=== PATIENT | female | born 1965 | race Caucasian/White ===

== ENCOUNTER 2020-12-27 16:13 | Outpatient (REF) | payer OTHER, SELFPAY ==
--- NOTE | ~2020-12-27 | XR_ITS ---
EXAMINATION: XR FOOT, LEFT CLINICAL INFORMATION: Foot. COMPARISON: None TECHNIQUE: AP, lateral, and oblique views of the left foot. FINDINGS: A small plantar spur is noted on the posterior calcaneus with calcification at the insertion of the Achilles tendon. The bones and soft tissues are otherwise normal. No fracture. Alignment is anatomic. Joint spaces are maintained. XR/XR foot LT 2V IMPRESSION: No acute abnormality. Calcaneal spurring.
[2020-12-27 17:46] LABS: MANUAL DIFF FLAG NO
[2020-12-27 17:53] LABS: Basophils Absolute Auto 0.1 X10*3/uL (0.0-0.2); Basophils Percent Auto 0.7 % (0-2); Eosinophils Absolute Auto 0.3 X10*3/uL (0.0-0.4); Eosinophils Percent Auto 3.6 % (0-4); Hematocrit 44.3 % (37-47); Hemoglobin 14.5 g/dl (12.0-16.0); Imm Gran Abs Auto 0.01 X10*3/uL (0.00-0.03); Imm Gran Pct Auto 0.1 % (0.0-0.4); Lymphocytes Absolute Auto 3.3 X10*3/uL (1.2-4.9); Mean Corpuscular HGB Conc 32.7 g/dl (31.0-35.0); Mean Corpuscular Volume 91.5 fL (80-98); Mean Platelet Volume 10.5 fL (9.4-12.3); Monocytes Absolute Auto 0.6 X10*3/uL (0.1-1.2); Monocytes Percent Auto 8.4 % (2-11); Neutrophils Absolute Auto 2.8 X10*3/uL (2.0-8.3); Neutrophils Percent Auto 40.2 % (45-73); Platelet Count 345 X10*3/uL (160-400); Red Blood Count 4.84 X10*6/uL (4.20-5.50); Red Cell Distribution Width 13.5 % (11.0-16.0); White Blood Count 6.9 X10*3/uL (4.8-10.8)
[2020-12-27 18:03] LABS: Glucose Urine UA NEG (NEG); Leukocyte Esterase Urine NEG (NEG); Nitrite Urine NEG (NEG); PH 5.5 (5.0-8.0); Specific Gravity - Urine 1.015 (1.005-1.025); Urine Blood TRACE (NEG); Urine Ketones NEG (NEG); Urine Protein NEG (NEG-TRACE)
[2020-12-27 18:06] LABS: D Dimer 573 NG/ML
[2020-12-27 18:07] LABS: Appearance Urine CLEAR; Color Urine YELLOW
[2020-12-27 18:15] LABS: RBC Urine 0-2 /HPF (0); WBC Urine 0 /HPF (0-4)
[2020-12-27 18:19] LABS: Alanine Aminotransferase 13 U/L (0-31); Albumin Level 4.7 g/dL (3.5-5.0); Alkaline Phosphatase 100 U/L (39-117); Anion Gap 12 (12-20); Aspartate Amino Transferase 16 U/L (5-31); Bilirubin Total 0.7 mg/dL (0.0-1.0); Blood Urea Nitrogen 16 mg/dL (9-16); Carbon Dioxide 30 mmol/L (22-29); Chloride 105 mmol/L (96-108); Cholesterol 219 mg/dL; Estimated Glomerular Filt Rate > 60; Glucose Random 78 mg/dL (60-115); HDL Cholesterol 69 mg/dL; LDL Cholesterol Calculated 127 mg/dl; Potassium 4.6 mmol/L (3.3-5.1); Sodium 142 mmol/L (135-145); Total Protein 7.6 g/dL (6.5-8.0); Triglycerides 115 mg/dL
== END 2020-12-27 16:14 | disposition home or self-care (01) ==
LOC: HO.LAB 16:13
PROVIDERS: PCP Internal Medicine; Visit Provider Nurse Practitioner Family
DX: M79.672 Pain in left foot (principal); R30.0 Dysuria
CPT/HCPCS: 36415; 73620; 80053; 80061; 81001; 85025; 85379

== ENCOUNTER 2021-06-02 12:20 | Outpatient (REF) | payer OTHER, SELFPAY ==
[2021-06-02 14:16] LABS: MANUAL DIFF FLAG NO
[2021-06-02 14:29] LABS: Basophils Percent Auto 0.5 % (0-2); Eosinophils Absolute Auto 0.1 X10*3/uL (0.0-0.4); Eosinophils Percent Auto 2.3 % (0-4); Hematocrit 42.9 % (37-47); Hemoglobin 14.1 g/dl (12.0-16.0); Imm Gran Abs Auto 0.01 X10*3/uL (0.00-0.03); Imm Gran Pct Auto 0.2 % (0.0-0.4); Lymphocytes Absolute Auto 2.8 X10*3/uL (1.2-4.9); Lymphocytes Percent Auto 44.2 % (20-40); Mean Corpuscular HGB Conc 32.9 g/dl (31.0-35.0); Mean Corpuscular Hemoglobin 30.9 pg (27.0-33.0); Mean Corpuscular Volume 93.9 fL (80-98); Mean Platelet Volume 10.5 fL (9.4-12.3); Monocytes Absolute Auto 0.5 X10*3/uL (0.1-1.2); Monocytes Percent Auto 7.2 % (2-11); Neutrophils Absolute Auto 2.8 X10*3/uL (2.0-8.3); Neutrophils Percent Auto 45.6 % (45-73); Platelet Count 335 X10*3/uL (160-400); Red Blood Count 4.57 X10*6/uL (4.20-5.50); Red Cell Distribution Width 13.2 % (11.0-16.0); White Blood Count 6.2 X10*3/uL (4.8-10.8)
[2021-06-02 14:42] LABS: Alanine Aminotransferase 23 U/L (0-31); Albumin Level 4.5 g/dL (3.5-5.0); Alkaline Phosphatase 93 U/L (39-117); Anion Gap 13 (12-20); Aspartate Amino Transferase 21 U/L (5-31); Bilirubin Total 1.1 mg/dL (0.0-1.0); Blood Urea Nitrogen 14 mg/dL (9-16); Calcium 9.6 mg/dL (8.4-10.2); Carbon Dioxide 25 mmol/L (22-29); Chloride 108 mmol/L (96-108); Estimated Glomerular Filt Rate > 60; Glucose Random 76 mg/dL (60-115); Potassium 4.2 mmol/L (3.3-5.1); Sodium 142 mmol/L (135-145); Total Protein 7.5 g/dL (6.5-8.0)
== END 2021-06-02 12:21 | disposition home or self-care (01) ==
LOC: HO.LAB 12:20
PROVIDERS: Absent Provider Nurse Practitioner Family; PCP Internal Medicine; Visit Provider Internal Medicine
DX: R10.13 Epigastric pain (principal)
CPT/HCPCS: 36415; 80053; 85025

== ENCOUNTER 2021-06-04 08:50 | Outpatient (REF) | payer OTHER, SELFPAY | END 2021-06-04 08:51 | disposition home or self-care (01) | LOC: HO.LNP 08:50 | PROVIDERS: Visit Provider Nurse Practitioner Family | DX: R10.13 Epigastric pain (principal) | CPT/HCPCS: 87338 ==

== ENCOUNTER 2021-09-22 12:25 | Day surgery (SDC) | payer OTHER, SELFPAY ==
--- NOTE | 2021-09-19 08:49 | HO.ANESPROP2 ---
Documented by User: Juana Gatica NP 09/19/21 08:50 HPI - Anesthesia Eval Consult details Narrative: 56yo F for Upper Endoscopy PMFSH Active Problems Active Problems: All Active Problems (Updated 06/02/21 @ 12:02 by NIYAH Weston) Callus of foot (Acute) Nausea (Acute) Epigastric pain (Acute) Hypertension (Acute) Left foot pain (Acute) Past Medical History Medical History (Updated 06/02/21 @ 12:02 by NIYAH Weston) Callus of foot Epigastric pain Hypertension Hypertension Left foot pain Migraines Nausea Neuropathy Family History Family History Father Hypertension Mother Hypertension Surgical History Surgical History History of laparoscopic cholecystectomy History of tonsillectomy Social History Social History Alcohol intake: never Patient Tobacco Use Status: Former Tobacco user Tobacco use type: Cigarette Use of substances other than those prescribed or required for medical reasons: No Advance Directives: No Advance Directives Information Provided: Yes Recently lost weight without trying: No Nutrition Risks: No Nutritional Risk Meds Allergies Allergy/AdvReac Type Severity Reaction Status Date / Time No Known Allergies Allergy Verified 06/02/21 11:28 [No Known Allergies*] Home Medications Medication Instructions Recorded Confirmed Last Taken Type omeprazole 20 mg capsule,delayed 20 mg PO BID 06/02/21 06/02/21 Unknown History release Exam Exam Date and Time: September 19, 2021 0849 Height,Weight and Vital Signs: Height 5 ft 1 in Weight 72.121 kg Pertinent Lab Results Pertinent Lab Results: Laboratory Tests 06/02/21 06/02/21 12:25 12:25 WBC 6.2 Hgb 14.1 Hct 42.9 Plt Count 335 Sodium 142 Potassium 4.2 Chloride 108 Carbon Dioxide 25 BUN 14 Creatinine 0.68 Assessment and Plan Assessment Anesthesia Assessment: Chart Reviewed Documented by User: Graciela Jo MD 09/22/21 14:41 [facility] Past Medical History Medical History (Updated 06/02/21 @ 12:02 by NIYAH Weston) Callus of foot Epigastric pain Hypertension Hypertension Left foot pain Migraines Nausea Neuropathy Family History Family History Father Hypertension Mother Hypertension Family history of problems with anesthesia: No Surgical History Surgical History History of laparoscopic cholecystectomy History of tonsillectomy Social History Social History Alcohol intake: never Patient Tobacco Use Status: Former Tobacco user Tobacco use type: Cigarette Use of substances other than those prescribed or required for medical reasons: No Advance Directives: No Advance Directives Information Provided: Yes Recently lost weight without trying: No Nutrition Risks: No Nutritional Risk Meds Allergies Allergy/AdvReac Type Severity Reaction Status Date / Time No Known Allergies Allergy Verified 06/02/21 11:28 [No Known Allergies*] Home Medications Medication Instructions Recorded Confirmed Last Taken Type omeprazole 20 mg capsule,delayed 20 mg PO BID 06/02/21 06/02/21 Unknown History release Exam Airway Mallampati Class: II TM Dist: >3cm Neck ROM: Full Heart: rrr Lungs: cta Assessment and Plan Assessment Anesthesia Assessment: Anesthesia Plan Discussed and Chart Reviewed Final Anesthetic Review Family History of Problems with Anesthesia: No NPO: Yes ASA Class: II Final Preanesthetic Review: No Changes in Pt Med Stat, Meds/Allgs Chart Reviewed and Consent Obtained/Reviewed Patient Risk: Intermediate Procedure Risk: Intermediate Anesthetic Plan Anesthetic Plan: MAC: Disposition: Standard PACU
[2021-09-22 13:27] VITALS: BMI 30.2
[2021-09-22 15:22] VITALS: BP 117/77; PULSE 75; RESP 16; TEMP 36.6; O2SAT 100
--- NOTE | 2021-09-22 15:24 | PM.OP ---
Brief Operative Note Date of Service: 09/22/21 Pre-op diagnosis: Abdominal pain Post-op diagnosis: other (Small hiatal hernia) Procedure: EGD with biopsies Surgeon: Ousmane Correa Anesthesia: MAC Was an Director Of Security used for this Procedure?: No Estimated blood loss (mL): 2.0 Pathology: other (A. Descending duodenum B. Gastric antrum C. EG Junction at 35cm) Condition: stable Disposition: PACU
[2021-09-22 15:40] VITALS: BP 158/68; PULSE 58; RESP 18; O2SAT 98
[2021-09-22 15:55] VITALS: BP 167/94; PULSE 60; RESP 18; TEMP 36.8; O2SAT 100
--- NOTE | 2021-09-22 18:34 | OP_ITS ---
SURGEON: Ousmane Correa MD INDICATIONS: The patient presents for evaluation of abdominal pain. Full consent has been obtained from her for that, including risks of bleeding and perforation. PREOPERATIVE DIAGNOSIS: Abdominal pain. POSTOPERATIVE DIAGNOSIS: PROCEDURE PERFORMED: Esophagogastroduodenoscopy with biopsy. ESTIMATED BLOOD LOSS: COMPLICATIONS: ANESTHESIA: Monitored anesthesia care. ASSISTANTS: SPECIMENS: POSTOPERATIVE DIAGNOSES: Abdominal pain, small hiatal hernia, rule out celiac disease, rule out gastritis and/or Helicobacter pylori. DESCRIPTION OF PROCEDURE: The patient was placed in left lateral decubitus position. The Olympus video gastroscope was passed in the posterior oropharynx and upper esophagus under direct vision. The scope was passed slowly into the distal esophagus. The gastroesophageal junction appeared at 35 cm. There was a very minimal irregularity, but no evidence of any esophagitis nor any definitive evidence of Winters's esophagus. The scope entered into the stomach. There was a small hiatal hernia. The scope was advanced to pylorus and the duodenum was cannulated to the descending portion. The duodenum including the bulb appeared normal without mass or ulceration. Biopsies were obtained from the second and third portions of duodenum. The scope was withdrawn back in the stomach. The gastric antrum and body appeared normal with good peristalsis. Biopsies were obtained from the gastric antrum. The scope was retroflexed visualizing the proximal stomach carefully which appeared normal, without any sign of mass or ulceration. Scope was straightened and withdrawn back into the esophagus. Biopsies were obtained at the EG junction at 35 cm. Proximal to that, the esophageal mucosa appeared normal. The scope was withdrawn from the patient. She tolerated the procedure well and was returned to the recovery area in stable condition. IMPRESSION: Small hiatal hernia, otherwise normal upper endoscopy. Rule out celiac disease, rule out gastritis and/or Helicobacter pylori. PLAN: The results of biopsies will be checked. She continues to have some abdominal pain and may need further workup with a CT scan of the abdomen. Laboratories earlier in the year have included normal CBC, chemistries, and LFTs. She is already status post cholecystectomy. She will be seen in the future in the office as well. If Helicobacter pylori is present in the gastric biopsies, I would not necessarily treat that since her symptoms do not seem really consistent with that since they are rather sporadic and on a postprandial basis. This has been discussed with her sister. MD ALEXANDRE Royal/JOHN / [id number]
== END 2021-09-22 16:26 | disposition home or self-care (01) ==
PROVIDERS: PCP Internal Medicine; Visit Provider Internal Medicine
PROC: 0DJ08ZZ Inspection of Upper Intestinal Tract, Via Natural or Artificial Opening Endoscopic (ICD-10-PCS; CPT 43235; principal; 2021-09-22 14:00)
DX: R10.13 Epigastric pain (principal); K44.9 Diaphragmatic hernia without obstruction or gangrene; I10 Essential (primary) hypertension; G62.9 Polyneuropathy, unspecified; Z79.899 Other long term (current) drug therapy; Z90.49 Acquired absence of other specified parts of digestive tract; Z87.891 Personal history of nicotine dependence
CPT/HCPCS: 43239; 88305; 88342

== ENCOUNTER 2023-02-05 10:03 | Outpatient (REF) | payer OTHER, SELFPAY ==
--- NOTE | ~2023-02-05 | XR_ITS ---
EXAMINATION: XR WRIST, LEFT XR HAND, LEFT CLINICAL INFORMATION: Ganglion COMPARISON: None available. TECHNIQUE: PA, lateral, and oblique views of the left wrist and PA, lateral, and oblique views of the left hand FINDINGS: Bone alignment is normal. No fracture or dislocation. Mild osteoarthritis at the first DETENTION joint with joint space narrowing and small osteophytes. Joint spaces are otherwise normal. Soft tissues are normal. 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
--- NOTE | ~2023-02-05 | XR_ITS ---
EXAMINATION: XR LUMBOSACRAL SPINE CLINICAL INFORMATION: Pain COMPARISON: Previous x-rays most recent May 2019 TECHNIQUE: Three views of the lumbosacral spine. FINDINGS: Transitional anatomy or lumbarization of S1. There is mild curvature of the lower lumbar sacral spine to the right. Bone alignment is otherwise normal. No fracture or dislocation. Normal disc spaces. Lower lumbar spine facet arthritis. Mild atherosclerotic disease. XR/XR lumbar spine 2-3V IMPRESSION: Mild curvature of the lower lumbar sacral spine to the right. Lower lumbar spine facet arthritis.
== END 2023-02-05 10:04 | disposition home or self-care (01) ==
LOC: HO.XRAY 10:03
PROVIDERS: PCP Internal Medicine; Visit Provider Internal Medicine
DX: M54.50 Low back pain, unspecified (principal); M67.439 Ganglion, unspecified wrist
CPT/HCPCS: 72100; 73110; 73130

== ENCOUNTER 2023-09-09 15:53 | Outpatient (REF) | payer OTHER, SELFPAY ==
--- NOTE | ~2023-09-09 | MM_ITS ---
EXAMINATION: MM SCREENING DIGITAL BREAST TOMOSYNTHESIS, BILATERAL CLINICAL INFORMATION: Screening. Asymptomatic. COMPARISON: Mammography: This study is compared with prior exams dating back to 2012. TECHNIQUE: Digital breast tomosynthesis is performed in both the craniocaudal and mediolateral oblique views along with computer-aided detection (CAD). Synthesized 2D images are generated from the tomosynthesis. FINDINGS: There are scattered areas of fibroglandular density (ACR BI-RADS breast composition Category b). There are no significant masses, abnormal calcifications, or other abnormalities. MM/MM tomosynthesis screening BI IMPRESSION: No mammographic evidence of malignancy. ASSESSMENT: BI-RADS BI-RADS 1 - Negative RECOMMENDATION: Routine annual mammography screening. 1 year F/U This examination should not preclude the clinical evaluation of a suspicious palpable abnormality. This patient's information was entered into a reminder system with a target due date for their next mammogram.
== END 2023-09-09 15:54 | disposition home or self-care (01) ==
LOC: HO.MAMMO 15:53
PROVIDERS: PCP Internal Medicine; Visit Provider Internal Medicine
DX: Z12.31 Encounter for screening mammogram for malignant neoplasm of breast (principal)
CPT/HCPCS: 77063; 77067

== ENCOUNTER → 2023-09-09 16:30 | Outpatient (BNV) | payer OTHER, SELFPAY | PROVIDERS: PCP Internal Medicine; Visit Provider Radiology Diagnostic Radiology | DX: Z12.31 Encounter for screening mammogram for malignant neoplasm of breast (principal) | CPT/HCPCS: 77063; 77067 ==

== ENCOUNTER 2023-10-08 08:29 | Outpatient (REF) | payer OTHER, SELFPAY ==
[2023-10-08 10:54] LABS: Alanine Aminotransferase 19 U/L (0-31); Albumin Level 4.3 g/dL (3.5-5.0); Alkaline Phosphatase 94 U/L (39-117); Anion Gap 12 (12-20); Aspartate Amino Transferase 17 U/L (5-31); Bilirubin Total 1.2 mg/dL (0.0-1.0); Blood Urea Nitrogen 9 mg/dL (9-16); Calcium 9.4 mg/dL (8.4-10.2); Carbon Dioxide 27 mmol/L (22-29); Chloride 106 mmol/L (96-108); Cholesterol 188 mg/dL (<200); Estimated Glomerular Filt Rate > 60; Glucose Fasting 84 mg/dL (60-99); HDL Cholesterol 65 mg/dL (>40); LDL Cholesterol Calculated 103 mg/dL (<100); Potassium 3.8 mmol/L (3.3-5.1); Sodium 141 mmol/L (135-145); Total Protein 7.5 g/dL (6.5-8.0); Triglycerides 104 mg/dL (<150)
== END 2023-10-08 08:30 | disposition home or self-care (01) ==
LOC: HO.LAB 08:29
PROVIDERS: PCP Internal Medicine; Visit Provider Internal Medicine
DX: E78.5 Hyperlipidemia, unspecified (principal); I10 Essential (primary) hypertension
CPT/HCPCS: 36415; 80053; 80061

== ENCOUNTER 2023-10-27 08:46 | Outpatient (REF) | payer OTHER, SELFPAY ==
[2023-10-29 04:59] LABS: HPV mRNA E6/E7 rflx Not Detected (Not Detected)
== END 2023-10-27 08:47 | disposition home or self-care (01) ==
LOC: HO.LNP 08:46
PROVIDERS: PCP Internal Medicine; Visit Provider Obstetrics & Gynecology
DX: Z01.419 Encounter for gynecological examination (general) (routine) without abnormal findings (principal); Z11.51 Encounter for screening for human papillomavirus (HPV)
CPT/HCPCS: 87624; 88142

== ENCOUNTER 2023-10-27 08:46 | Outpatient (AMB) | payer OTHER, SELFPAY ==
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
--- NOTE | 2023-10-27 08:55 | MHC.OFFVIS ---
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 No complaints. Last Pap/HPV was more than 5 years ago Last Mammogram was BI-RADS 1 in 09/02 No previous screening Colonoscopy PFSH Medical History Callus of foot Nausea Epigastric pain Hypertension Left foot pain Migraines Neuropathy Hypertension Surgical History History of laparoscopic cholecystectomy History of tonsillectomy Family History Father Hypertension Mother Hypertension Social History Household Members Other:: sister Housing: House Alcohol intake: never Patient Tobacco Use Status: Former Tobacco user Tobacco use type: Cigarette Years Smoked: 5 e-Cigarette/Vaping Use: Never Used Second Hand Smoke Exposure: No service: No Current occupational status: employed Current occupation: cosmetic Sexually active: No Sexual orientation: Straight/Heterosexual Gender identity: Female Cognitive needs: No Hearing needs: No Vision needs: No Female Reproductive History Menstrual Menopause type: natural Total pregnancies: 0 Date of Mammogram: 09/09/23 Review of Systems Const All systems reviewed & are unremarkable except as noted in HPI and below Card Reports as per HPI Resp Reports as per HPI GI Reports as per HPI and Reports no additional complaints Reports as per HPI Physical Exam Vital Signs: BMI result Body Mass Index 31.7 Const General: cooperative, healthy appearing and comfortable Chest Chest palpation & inspection: normal inspection of the chest and normal palpation of entire chest wall Breast/axilla inspection: normal inspection of the breasts and normal inspection of the axillae Breast/axilla palpation: normal palpation of the breasts, normal palpation of the axillae and no axillary lymphadenopathy Resp Effort & Inspection: normal respiratory effort Auscultation: clear to auscultation bilaterally Percussion: percussion normal Cardio Palpation: normal PMI Rate: regular rate Rhythm: regular rhythm Heart sounds: no murmurs and no rubs Peripheral pulses: Peripheral pulses 2+ throughout GI Inspection: Yes normal to inspection Palpation (GI): Soft to palpation, nontender, no guarding, not rigid and No hepatosplenomegaly present Percussion: Yes normal to percussion Auscultation: normal bowel sounds Rectal Exam - Female: deferred General: Yes bladder normal to palpation External Female Exam: No lesion Speculum Exam - Vagina: normal appearance of the vagina, normal palpation, normal vaginal discharge and not erythematous Speculum Exam - Cervix: normal appearance of the cervix and normal palpation Bimanual exam- vagina & uterus: normal bimanual exam, normal palpation, uterine size normal, bladder normal to palpation, consistency normal and normal palpation Bimanual Exam- Adnexa, other: normal adnexae, no masses and no tenderness Assessment & Plan Assessment & Plan (1) Well woman exam: Code(s): Z01.419 - Encounter for gynecological examination (general) (routine) without abnormal findings Plan: Co testing done. Counseled the patient about the recommended dietary allowance of 1200 mg of Calcium & 600 IU of vitamin D. Instructions given the patient to schedule next screening Mammogram in 09/03. The patient was referred to GI for screening colonoscopy . The patient was instructed to perform monthly self-breast exams and schedule annual exam in a year. All questions answered and the patient verbalized understanding. Orders: Referrals Gastroenterology Referral Z12.11 - Encounter for screening for malignant neoplasm of colon Coding Level of Care Code New Pt Prev Care 40-64y(09970) Diagnoses Well woman exam Z01.419
[2023-10-27 08:56] VITALS: BP 150/108; BMI 31.7
== END 2023-10-27 09:19 | disposition home or self-care (01) ==
LOC: HO.HWS 08:46
PROVIDERS: PCP Internal Medicine; Visit Provider Obstetrics & Gynecology
DX: Z01.419 Encounter for gynecological examination (general) (routine) without abnormal findings (principal)
CPT/HCPCS: 99386

== ENCOUNTER 2024-07-15 08:50 | Outpatient (REF) | payer OTHER, SELFPAY ==
[2024-07-15 10:15] LABS: Alanine Aminotransferase 12 U/L (0-31); Albumin Level 4.3 g/dL (3.5-5.0); Alkaline Phosphatase 64 U/L (39-117); Anion Gap 10 (12-20); Aspartate Amino Transferase 15 U/L (5-31); Bilirubin Total 1.2 mg/dL (0.0-1.0); Blood Urea Nitrogen 14 mg/dL (9-16); Calcium 9.6 mg/dL (8.4-10.2); Carbon Dioxide 26 mmol/L (22-29); Chloride 109 mmol/L (96-108); Cholesterol 210 mg/dL (<200); Estimated Glomerular Filt Rate > 60; Glucose Fasting 88 mg/dL (60-99); Glucose Random 87 mg/dL (60-115); HDL Cholesterol 51 mg/dL (>40); LDL Cholesterol Calculated 139 mg/dL (<100); Potassium 4.1 mmol/L (3.3-5.1); Sodium 141 mmol/L (135-145); Triglycerides 102 mg/dL (<150)
== END 2024-07-15 08:51 | disposition home or self-care (01) ==
LOC: HO.LAB 08:50
PROVIDERS: PCP Internal Medicine; Referring Provider Internal Medicine; Visit Provider Physician Assistant
DX: I10 Essential (primary) hypertension (principal)
CPT/HCPCS: 36415; 80048; 80053; 80061

== ENCOUNTER 2024-09-21 15:49 | Outpatient (REF) | payer OTHER, SELFPAY ==
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
== END 2024-09-21 15:50 | disposition home or self-care (01) ==
LOC: HO.MAMMO 15:49
PROVIDERS: PCP Physician Assistant; Visit Provider Internal Medicine
DX: Z12.31 Encounter for screening mammogram for malignant neoplasm of breast (principal)
CPT/HCPCS: 77063; 77067

== ENCOUNTER → 2024-09-21 16:00 | Outpatient (BNV) | payer OTHER, SELFPAY | PROVIDERS: PCP Physician Assistant; Visit Provider Internal Medicine | DX: Z12.31 Encounter for screening mammogram for malignant neoplasm of breast (principal) | CPT/HCPCS: 77063; 77067 ==

== ENCOUNTER 2024-11-29 16:25 | Outpatient (AMB) | payer OTHER, SELFPAY ==
--- OUTSIDE RECORDS SUMMARY | 2024-11-29 16:27 | XMS_ITS | Clinical Summary ---
Author Organization [facility] Address [address] [place] [address] Care Team Providers Care Dryer And Washer Mechanic Name Role Phone Debbie Patricio MD Primary Care Provider [phone] Surgical History Surgery Date Site/Laterality Comments OTHER SURGICAL HISTORY 10/08/2018 PROCEDURE: LAPAROSCOPY, CHOLECYSTECTOMY; COMMENT: Dr. Bishop Social History Tobacco Use Types Packs/Day Years Used Date Smoking Tobacco: Never Smokeless Tobacco: Never Comments Unknown Sex and Gender Information Value Date Recorded Sex Assigned at Not on file Legal Sex Female 5:41 PM EST Gender Identity Not on file Sexual Orientation Not on file Obstetrics History Plan of Treatment Health Maintenance Due Date Last Done Comments Breast Cancer Screening 1965 DTaP,Tdap,and Td Vaccines (1 - Tdap) 1984 Hepatitis B Vaccines (1 of 3 - 19+ 3-dose series) 1984 Cervical Cancer Screening: P ap Smear 1986 Pneumococcal Vaccine: 50+ Ye ars (1 of 1 - PCV) 2015 Zoster Vaccines (1 of 2) 2015 COVID-19 Vaccine ( - 2023-2 5 season) 2024 Influenza Vaccine (#1) 2024 Colorectal Cancer Screening: Colonoscopy 08/04/2024 Depression Screening 08/04/2024 HIV Screening 08/04/2024 Hepatitis C Screening 08/04/2024 Social Influencers of Health Screening 08/04/2024 RSV Immunization Patients 60 + Years Old (1 - 1-dose 75+ series) 2040 HIB Vaccines Aged Out No longer eligi ble based on patient's age to complete this topic HPV Vaccines Aged Out No longer eligi ble based on patient's age to complete this topic Hepatitis A Vaccines Aged Out No long er eligible based on patient's age to complete this topic IPV Vaccines Aged Out No longer eligi ble based on patient's age to complete this topic MMR Vaccines Aged Out No longer eligi ble based on patient's age to complete this topic Meningococcal ACWY Vaccine Aged Out N o longer eligible based on patient's age to complete this topic Meningococcal B Vacine Aged Out No lo nger eligible based on patient's age to complete this topic Pneumococcal Vaccine: Pediat rics (0 to 5 Years) and At-Risk Patients (6 to 64 Years) Aged Out No longer eligible b ased on patient's age to complete this topic RSV Immunization Patients Un ivanna 20 months Aged Out No longer eligible b ased on patient's age to complete this topic Varicella Vaccines Aged Out No longer eligible based on patient's age to complete this topic Care Teams Dryer And Washer Mechanic Relationship Specialty Start Date End Date Debbie Patricio MD [address] [place] [address] , [address] [facility]: [facility] [place], MD PCP - General Internal Medicine 10/20/18
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
--- NOTE | 2024-11-29 16:42 | A.OFFPC_ITS ---
Vital Signs 11/29/24 16:44 Height 5 ft 1 in Weight 166 lb BMI 31.4 BP 152/90 H Blood Pressure Location Lt brachial Position Sitting Intake Visit Reasons: HighBP Intake Note: Patient here for bp follow up Campaign Consultant Required: No Accompanied by: Self / Same As Patient Allergies No Known Allergies [No Known Allergies*] Allergy (Verified 11/29/24 17:00) Medication List - Last Reconciled 11/29/24 by Debbie Patricio MD fluticasone furoate 27.5 mcg/actuation 2 sprays intranasal DAILY PRN 30 days gabapentin 400 mg PO TID 30 days lisinopril 20 mg PO DAILY 90 days naproxen 500 mg PO BID PRN 30 days omeprazole 20 mg PO BID Tobacco use date assessed: 11/29/24 Dental Screening Dental Screen Date: 11/29/24 Did you have a dental visit in the last 12 months?: Yes Did you have a dental problem in the last 6 months where you did not have access to dental care?: No Was dental information given to patient?: Patient has dentist HPI HPI Comments History of Present Illness Details The patient is a 59-year-old female presenting with hypertension. She has been experiencing elevated blood pressure readings, currently noted at 150/90 mmHg. She reports taking lisinopril 20 mg twice daily but indicates that this dosage is not effective. No chest pain or shortness of breath is reported. She denies any allergies to medications. [facility] Medical History Callus of foot Nausea Epigastric pain Hypertension Left foot pain Migraines Neuropathy Hypertension Surgical History History of laparoscopic cholecystectomy History of tonsillectomy Family History Father Hypertension Mother Hypertension Social History Household Members Other:: sister Housing: House Alcohol intake: never Patient Tobacco Use Status: Former Tobacco user Tobacco use type: Cigarette Years Smoked: 5 e-Cigarette/Vaping Use: Never Used Second Hand Smoke Exposure: No service: No Current occupational status: employed Current occupation: cosmetic Sexual orientation: Straight/Heterosexual Gender identity: Female Cognitive needs: No Hearing needs: No Vision needs: No Questionnaire PHQ-9 Over the last 2 weeks, how often have you been bothered by any of the following problems? 1. Little interest or pleasure in doing things: not at all 2. Feeling down, depressed, or hopeless: not at all 3. Trouble falling or staying asleep, or sleeping too much: not at all 4. Feeling tired or having little energy: not at all 5. Poor appetite or overeating: not at all 6. Feeling bad about yourself - or that you are a failure or have let yourself or your family down: not at all 7. Trouble concentrating on things, such as reading the newspaper or watching television: not at all 8. Moving or speaking so slowly that other people could have noticed. Or the opposite - being so fidgety or restless that you have been moving around a lot more than usual: not at all 9. Thoughts that you would be better off or of hurting yourself in some way: not at all Total score: 0 Depression Screening Interpretation: Negative Depression Screening Done: Yes 72030 - PHQ-9 Billing: Yes Source: Developed by Drs. Ousmane Koo, Jackie Espinosa, Bereket Moura and colleagues, with an educational dilshad from [employer]. Thrive Questionnaire Date Thrive assessed: 11/29/24 I am a: Patient What is your living situation today?: I have a steady place to live Within the past 12 months, did the food you bought not last and you didn't have the money to get more?: Never true Within the past 12 months, did you worry whether your food would run out before you got money to buy more?: Never true Do you have trouble paying for medicines?: No Do you have trouble getting transportation to medical appointments?: No Do you have trouble paying your heating and electricity bill?: No Do you have trouble taking care of your child, family member or friend?: No Do you have trouble with day-to-day activities such as bathing, preparing meals, shopping, managing finances, etc.?: No Are you currently unemployed and looking for a job?: No Are you interested in more education?: No Please select the resources that you would like help with: None Currently or been in a relationship where the following occur: No concerns reported THRIVE Score: 0 AUDIT C Alcohol Use Questionnaire (AUDIT-C) 1. How often do you have a drink containing alcohol?: Never Total Score: 0 Score Reviewed/Action Taken: No QUYNH-7 AMB Questionnaire QUYNH-7 Date QUYNH - 7 assessed: 11/29/24 Feeling nervous, anxious, or on edge: 0 = Not at all Not being able to stop or control worryin = Not at all Worrying too much about different things: 0 = Not at all Trouble relaxin = Not at all Being so restless that it is hard to sit still: 0 = Not at all Becoming easily annoyed or irritable: 0 = Not at all Feeling afraid as if something awful might happen: 0 = Not at all Total QUYNH-7 score (0-4 normal; 5-9 mild; 10-14 moderate; 15-21 severe): 0 Source: Developed by Drs. Ousmane Koo, Jackie Espinosa, Bereket Moura and colleagues, with an educational dilshad from [employer]. QUYNH-7 Assessment Billing QUYNH-7 Assessment Tool: QUYNH-7 Assessment 61286 Review of Systems Const All systems reviewed & are unremarkable except as noted in HPI and below Card Denies chest pain at rest, Denies chest pain with activity, Denies edema, Denies irregular heart rhythm, Denies claudication, Denies dyspnea, Denies dyspnea on exertion, Denies orthopnea, Denies paroxysmal nocturnal dyspnea and Denies slow heart rate Resp Denies cough, Denies dyspnea and Denies dyspnea on exertion GI Denies abdominal pain, Denies change in bowel habits, Denies excessive flatus, Denies nausea and Denies vomiting Denies urinary incontinence, Denies urinary hesitancy and Denies urinary urgency Neuro Denies behavioral changes and Denies lack of coordination Psych Denies behavioral changes Physical exam (Primary Care) Vital Signs: Last Vital Signs BP 152/90 H 11/29/24 16:44 BMI result Body Mass Index 31.4 BMI Assessment/Plan discussion: High BMI High, discussed plan: lifestyle, weight reduction, dietary and physical activity Tobacco/Smoking Status: Tobacco use Status Tobacco use date assessed 11/29/24 11/29/24 16:49 Patient Tobacco Use Status Former Tobacco user 11/29/24 16:44 Tobacco use type Cigarette 11/29/24 16:44 e-Cigarette/Vaping Use Never Used 11/29/24 16:44 PHQ-9: PHQ-9 Score PHQ-9: Total score 0 11/29/24 17:10 Depression Screening Interpretation: Negative Thrive Assessment: Date of Thrive Assessment Date Thrive assessed 11/29/24 11/29/24 16:49 Currently or been in a relationship where the following occur: No concerns reported Neck Neck: Yes normal visual inspection and Yes supple Resp Effort & Inspection: normal respiratory effort Auscultation: clear to auscultation bilaterally Cardio Jugular venous distension: no JVD Rate: regular rate Rhythm: regular rhythm Heart sounds: S1 normal heart sound present and S2 normal heart sound present Extrem General: Yes full ROM Office Procedures Flu Questionnaire Does the patient have a severe egg allergy?: No Immunizations Fluarix Triv [id number] (PF) 45 mcg (15 mcg x 3)/0.5 mL IM syringe Performing Provider: Debbie Patricio MD Performing [facility] Documented (not given) by: LOR Goss on 11/29/24 17:10 Reason Not Given: Patient Refused Coding Level of Care Code Est Pt Level 3 (63976) Complex EM visit Add On G2211 Diagnoses Hypertension I10 BPPV (benign paroxysmal positional vertigo) H81.10 Chronic GERD K21.9 Additional Codes QUYNH-7 Assessment Billing - QUYNH-7 Assessment Tool: QUYNH-7 Assessment 50941 ([id number]) PHQ-9 - 05711 - PHQ-9 Billing: Yes ([id number]) Time Spent (min) 19 Assessment & Plan Assessment & Plan (1) Hypertension: Code(s): I10 - Essential (primary) hypertension Category: Medical (2) BPPV (benign paroxysmal positional vertigo): Code(s): H81.10 - Benign paroxysmal vertigo, unspecified ear Category: Medical (3) Chronic GERD: Code(s): K21.9 - Gastro-esophageal reflux disease without esophagitis Category: Medical Plan - Essential Hypertension: Adjust lisinopril to 40 mg once daily and add amlodipine 5 mg daily. She will be monitored in 3 weeks. - Dizziness: Evaluate for possible vestibular issues and prescribe medication for symptomatic relief. Consider vestibular therapy if symptoms persist. - GERD: Continue omeprazole and assess for symptom control. Patient was informed and verbally consented to the use of an ambient scribe for clinic note documentation during this visit. I discussed with the patient that controlling her blood pressure is crucial to prevent cardiovascular complications. The risks and benefits of adjusting her antihypertensive medication were explained, along with the potential side effects, such as peripheral edema, from amlodipine. For dizziness, I described using medication for symptomatic relief and the potential need for vestibular therapy if symptoms continue. I emphasized the importance of monitoring her symptoms and following the prescribed regimen. A follow-up appointment was scheduled for three weeks to reassess blood pressure control and symptom man agement, and she was advised to seek care if her symptoms worsen or if new symptoms develop. Orders: Orders Influenza [id number] Immunization Today Z23 - Encounter for immunization Medications: New lisinopril 40 mg PO DAILY 90 tabs 1RF 90 days amlodipine 5 mg PO DAILY 90 tabs 0RF 90 days meclizine 25 mg PO DAILY PRN 30 tabs 0RF motion sickness 30 days Discontinued lisinopril Discontinued Reason: Patient Completed Course 20 mg PO DAILY 90 days 90 tabs 0RF Patient Instructions: - Take lisinopril 40 mg once daily as prescribed. - Start amlodipine 5 mg daily as prescribed. - Use the dizziness medication as needed for symptoms. - Monitor blood pressure regularly and report high readings. - Return in 3 weeks for blood pressure check or sooner if symptoms worsen. - Continue omeprazole as prescribed and monitor for heartburn or reflux symptoms.
[2024-11-29 16:44] VITALS: BP 152/90; BMI 31.4
== END 2024-11-29 17:07 | disposition home or self-care (01) ==
PROVIDERS: PCP Internal Medicine; Visit Provider Internal Medicine
DX: I10 Essential (primary) hypertension (principal); H81.10 Benign paroxysmal vertigo, unspecified ear; K21.9 Gastro-esophageal reflux disease without esophagitis; Z23 Encounter for immunization

== ENCOUNTER → 2024-11-29 16:25 | Outpatient (BNVA) | payer OTHER, SELFPAY | PROVIDERS: PCP Internal Medicine; Visit Provider Internal Medicine | DX: I10 Essential (primary) hypertension (principal); H81.10 Benign paroxysmal vertigo, unspecified ear; K21.9 Gastro-esophageal reflux disease without esophagitis; Z79.899 Other long term (current) drug therapy | CPT/HCPCS: 90471; 96127 ==

== ENCOUNTER 2024-12-19 10:33 | Outpatient (REF) | payer OTHER, SELFPAY ==
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
--- OUTSIDE RECORDS SUMMARY | 2024-12-19 12:37 | XMS_ITS | Clinical Summary ---
Author Organization [facility] ity Address [address] [place] [address] Care Team Providers Care Operations Agent Name Role Phone Debbie Patricio MD Primary Care Provider [phone] Surgical History Surgery Date Site/Laterality Comments OTHER [...] age to complete this topic Care Teams Operations Agent Relationship Specialty Start Date End Date Debbie Patricio MD [address] [place] [address] , [address] [facility] Physician Associ D/B/A: [facility] [place], [place] PCP - General Internal Medicine 10/20/18
[2024-12-19 13:10] LABS: Alanine Aminotransferase 35 U/L (0-31); Albumin Level 4.2 g/dL (3.5-5.0); Alkaline Phosphatase 83 U/L (39-117); Anion Gap 8 (12-20); Aspartate Amino Transferase 28 U/L (5-31); Blood Urea Nitrogen 16 mg/dL (9-16); Calcium 9.4 mg/dL (8.4-10.2); Carbon Dioxide 27 mmol/L (22-29); Chloride 110 mmol/L (96-108); Cholesterol 209 mg/dL (<200); Estimated Glomerular Filt Rate > 60; Glucose Fasting 89 mg/dL (60-99); HDL Cholesterol 68 mg/dL (>40); LDL Cholesterol Calculated 115 mg/dL (<100); Potassium 4.1 mmol/L (3.3-5.1); Sodium 141 mmol/L (135-145); Total Protein 7.6 g/dL (6.5-8.0); Triglycerides 130 mg/dL (<150)
== END 2024-12-19 10:34 | disposition home or self-care (01) ==
LOC: HO.LAB 10:33
PROVIDERS: PCP Internal Medicine; Visit Provider Internal Medicine
DX: I10 Essential (primary) hypertension (principal); E78.5 Hyperlipidemia, unspecified
CPT/HCPCS: 36415; 80053; 80061

== ENCOUNTER 2025-03-21 11:07 | Outpatient (AMB) | payer OTHER, SELFPAY ==
[2025-03-21 11:08] VITALS: BP 140/90; PULSE 83; TEMP 36.7; O2SAT 98; BMI 34.2
--- NOTE | 2025-03-21 11:08 | AM.OFFWIN_ITS ---
Intake Vital Signs 03/21/25 11:08 Height 5 ft 1 in Weight 181 lb 2 oz BMI 34.2 BP 140/90 H Blood Pressure Location Rt brachial Position Sitting Pulse 83 Pulse Source Pulse Oximeter Temp 98.1 F Temp Source Oral Pulse Oximetry (%) 98 Oxygen Delivery Method Room Air Intake Visit Reasons: EP-dizziness, nauseau, ears pressure Intake Note: Pt presents to the office today for c/o dizziness,nausea, and b/l ear pressure and pain x3 days. Patient Tobacco Use Status: Former Tobacco user Allergies No Known Allergies [No Known Allergies*] Allergy (Verified 03/21/25 11:08) HPI HPI Comments History of Present Illness Details History of Present Illness - The patient is a 59-year-old Urdu s peaking female presenting today via thoracic medicine specialist with dizziness and ear pain. - Symptoms of dizziness and ear pain sta rted on Wednesday. - The patient uses a nasal spray for all ergies without a history of using any other allergy medications. - There is no sinus congestion or pain. - He denies fever, chills, WHITNEY, CP, SOB, abd pain, n/v/d. She denies dizziness. Physical Exam General: Cooperative, healthy appearing, comfortable, no acute distress and well developed Head: Normal to inspection Ears: Hearing grossly normal bilaterally. Mild erythema noted in the canal, no cerumen or fluid. TM is normal with good cone of light. Effusion noted bilaterally. Nose: Normal external nose present Face and sinus: Normal facial exam. No sinus tenderness noted. Eyes: Appearance normal, both eyes and all related structures Neck: Normal visual inspection and Yes full ROM. No lymphadenopathy noted. Respiratory: Normal respiratory effort and able to speak in complete sentences. Clear to auscultation bilaterally Cardiovascular: Regular rate and rhythm. Normal S1 and S2 GI: Normal to inspection. Hypo active bowel sounds noted. Soft to palpation and nontender. No guarding or rebound tenderness noted. Skin: No rashes or lesions noted Patient was informed and verbally consented to the use of an ambient scribe for clinic note documentation during this visit. [facility] Medical History Callus of foot Nausea Epigastric pain Hypertension Left foot pain Migraines Neuropathy Hypertension Surgical History History of laparoscopic cholecystectomy History of tonsillectomy Family History Father Hypertension Mother Hypertension Social History Household Members Other:: sister Housing: House Alcohol intake: never Patient Tobacco Use Status: Former Tobacco user Tobacco use type: Cigarette Years Smoked: 5 e-Cigarette/Vaping Use: Never Used Second Hand Smoke Exposure: No service: No Current occupational status: employed Current occupation: cosmetic Sexual orientation: Straight/Heterosexual Gender identity: Female Cognitive needs: No Hearing needs: No Vision needs: No Review of Systems Const All systems reviewed & are unremarkable except as noted in HPI and below Physical Exam Vital Signs: Last Vital Signs Temp 98.1 F 03/21/25 11:08 Pulse 83 03/21/25 11:08 BP 140/90 H 03/21/25 11:08 Pulse Ox 98 03/21/25 11:08 Oxygen Delivery Method Room Air 03/21/25 11:08 BMI result Body Mass Index 34.2 Assessment & Plan Assessment & Plan (1) Ear pain: Code(s): H92.09 - Otalgia, unspecified ear Qualifiers: Laterality: bilateral Qualified Code(s): H92.03 - Otalgia, bilateral Plan Most likely effusion vs OM vs OE vs allergies vs sinusitis Plan- - Tyelnol or Motrin as needed - Zyrtec-D daily - Flonase as prescribed - Follow up with PCP Medications: New cetirizine-pseudoephedrine 5-120 mg ER 1 tab PO BID 7 days PRN 14 tabs 0RF allergy symptoms Coding Level of Care Code Est Pt Level 3 (22885) Diagnoses Otalgia of both ears H92.03 Laterality: bilateral
--- OUTSIDE RECORDS SUMMARY | 2025-03-21 12:44 | XMS_ITS | Clinical Summary ---
Author Organization [facility] Address [address] [place] [address] Care Team Providers Care [place] Guide Name Role Phone Debbie Patricio MD Primary Care Provider [phone] Surgical History Surgery Date Site/Laterality Comments OTHER [...] Vaccines (1 of 2) 2015 COVID-19 Vaccine (2023-2 5 season) 2024 Colorectal Cancer Screening: Colonoscopy 08/04/2024 Depression Screening 08/04/2024 HIV Screening 08/04/2024 Hepatitis C Screening 08/04/2024 Social Influencers of Health Screening 08/04/2024 Influenza Vaccine (Season Ended) 2025 RSV Immunization Adult Patie nts (1 - 1-dose 75+ series) 2040 HIB [...] age to complete this topic Meningococcal B Vaccine Aged Out No l onger eligible based on patient's age to complete [...] age to complete this topic Care Teams [place] Guide Relationship Specialty Start Date End Date Debbie Patricio MD [address] [place] [address] , [address] [facility] Physician Associ D/B/A: [facility] [place] [place] PCP - General Internal Medicine 10/20/18
== END 2025-03-21 12:31 | disposition home or self-care (01) ==
PROVIDERS: PCP Internal Medicine; Visit Provider Physician Assistant Medical
DX: H92.03 Otalgia, bilateral (principal)

== ENCOUNTER → 2025-03-21 11:07 | Outpatient (BNVA) | payer OTHER, SELFPAY | PROVIDERS: PCP Internal Medicine; Visit Provider Physician Assistant Medical | DX: Z13.89 Encounter for screening for other disorder (principal) ==

== ENCOUNTER 2025-06-14 07:55 | Outpatient (REF) | payer OTHER, SELFPAY ==
--- NOTE | ~2025-06-14 | XR_ITS ---
EXAMINATION: XR SHOULDER, LEFT CLINICAL INFORMATION: M25.512 - Pain in left shoulder COMPARISON: None available. TECHNIQUE: AP external rotation, Grashey, scapular Y, and axillary views of the left shoulder. FINDINGS: No acute cortical disruption or malalignment. No lytic or blastic lesions. No soft tissue calcifications. No subcutaneous emphysema. XR/XR shoulder LT min 2V IMPRESSION: Normal x-ray left shoulder. Electronically signed by: Tom Jansen MD 06/14/2025 08:49 AM EDT
== END 2025-06-14 07:56 | disposition home or self-care (01) ==
LOC: HO.HMGCX 07:55
PROVIDERS: PCP Internal Medicine; Visit Provider Nurse Practitioner Family
DX: M25.512 Pain in left shoulder (principal)
CPT/HCPCS: 73030

== ENCOUNTER 2025-06-14 07:55 | Outpatient (AMB) | payer OTHER, SELFPAY ==
[2025-06-14 07:59] VITALS: BP 140/90; PULSE 78; RESP 15; TEMP 37.1; O2SAT 99; BMI 35.0
--- NOTE | 2025-06-14 07:59 | MHC.OFFWIV ---
Intake Vital Signs 06/14/25 07:59 Height 5 ft 1 in Weight 185 lb BMI 35.0 BP 140/90 H Blood Pressure Location Lt brachial Position Sitting Respiration 15 Pulse 78 Pulse Source Pulse Oximeter Temp 98.7 F Temp Source Oral Pulse Oximetry (%) 99 Oxygen Delivery Method Room Air Intake Visit Reasons: EP-lsp pain, lt shoulder pain Intake Note: Pt is here today c/o Lt shoulder pain no injury noted x1wk Patient Tobacco Use Status: Former Tobacco user Allergies No Known Allergies (No Known Allergies*) Allergy (Verified 06/14/25 08:01) Do you need a note to return to daycare/school/sports/work: Yes HPI HPI Comments History of Present Illness Details 60 y/o Female patient who presents to the walk in clinic with c/o Left shoulder pain x 1 week. Denies injury or trauma to the shoulder. [facility] Medical History (Updated 06/14/25 @ 08:14 by Kisha Moy NP) Left shoulder pain Callus of foot Nausea Epigastric pain Hypertension Left foot pain Migraines Neuropathy Hypertension Surgical History History of laparoscopic cholecystectomy History of tonsillectomy Family History Father Hypertension Mother Hypertension Social History Household Members Other:: sister Housing: House Alcohol intake: never Patient Tobacco Use Status: Former Tobacco user Tobacco use type: Cigarette Years Smoked: 5 e-Cigarette/Vaping Use: Never Used Second Hand Smoke Exposure: No service: No Current occupational status: employed Current occupation: cosmetic Sexual orientation: Straight/Heterosexual Gender identity: Female Cognitive needs: No Hearing needs: No Vision needs: No Review of Systems Const All systems reviewed & are unremarkable except as noted in HPI and below Physical Exam Vital Signs: Last Vital Signs Temp 98.7 F 06/14/25 07:59 Pulse 78 06/14/25 07:59 Resp 15 06/14/25 07:59 BP 140/90 H 06/14/25 07:59 Pulse Ox 99 06/14/25 07:59 Oxygen Delivery Method Room Air 06/14/25 07:59 BMI result Body Mass Index 35.0 Const General: no acute distress Nutritional Appearance: overweight Orientation/consciousness: patient oriented x3 Neuro General: patient oriented x3, gait normal and moves all extremities Extrem Left upper extremity: shoulder/upper arm Details: inspection abnormal, tenderness Location: of the scapula and over the deltoid bursa and normal ROM; no swelling, no ecchymosis, no crepitus, no deformity and no unsual warmth Psych Speech and movement: Normal speech and movement present Assessment & Plan Assessment & Plan (1) Left shoulder pain: Code(s): M25.512 - Pain in left shoulder Qualifiers: Chronicity: acute Qualified Code(s): M25.512 - Pain in left shoulder Plan: Ordered Xray Shoulder Ordered NSAIDs and Flexeril Heat/Ice Rest Joint. Orders: Orders XR shoulder LT min 2V Today M25.512 - Pain in left shoulder Medications: New cyclobenzaprine 10 mg PO BEDTIME 14 tabs 0RF M25.512 - Pain in left shoulder Changed From naproxen 500 mg PO BID 30 days PRN 60 tabs 3RF pain M25.512 - Pain in left shoulder To naproxen 500 mg PO BID 28 tabs 3RF pain 14 days M25.512 - Pain in left shoulder Coding Level of Care Code Est Pt Level 4 (70638) Diagnoses Acute pain of left shoulder M25.512 Chronicity: acute Time Spent (min) 20
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
--- OUTSIDE RECORDS SUMMARY | 2025-06-14 08:01 | XMS_ITS | Clinical Summary ---
Author Organization [facility] Address [address] [place] [address] Care Team Providers Care Food Dehydrator Operator Name Role Phone Debbie Patricio MD Primary Care Provider [phone] Surgical History Surgery Date Site/Laterality Comments OTHER [...] DTaP,Tdap,and Td Vaccines (1 - Tdap) 1984 Cervical Cancer Screening: P ap Smear 1986 Pneumococcal Vaccine: 50+ Ye ars (1 of 1 - PCV) 2015 Zoster Vaccines (1 of 2) 2015 COVID-19 Vaccine ( - 2023-2 5 season) 2024 Colorectal Cancer Screening: Colonoscopy 08/04/2024 HIV Screening 08/04/2024 Hepatitis C Screening 08/04/2024 Social Influencers of Health Screening 08/04/2024 Depression Screening 10/11/2024 Influenza Vaccine (#1) 2025 RSV Immunization Adult Patie nts (1 - 1-dose 75+ series) 2040 HIB Vaccines Aged Out No longer eligi ble based on patient's age to complete this topic HPV Vaccines Aged Out No longer eligi ble based on patient's age to complete this topic Hepatitis A Vaccines Aged Out No long er eligible based on patient's age to complete this topic Hepatitis B Vaccines Aged Out No long er eligible [...] age to complete this topic Care Teams Food Dehydrator Operator Relationship Specialty Start Date End Date Debbie Patricio MD [address] [place] [address] , [address] [facility] Physician Associ D/B/A: [facility] GEMINI Omalley PCP - General Internal Medicine 10/20/18
== END 2025-06-14 08:26 | disposition home or self-care (01) ==
PROVIDERS: PCP Internal Medicine; Visit Provider Nurse Practitioner Family
DX: M25.512 Pain in left shoulder (principal)

== ENCOUNTER → 2025-06-14 08:35 | Outpatient (BNV) | payer OTHER, SELFPAY | PROVIDERS: PCP Internal Medicine; Visit Provider Radiology Diagnostic Radiology | DX: M25.512 Pain in left shoulder (principal) | CPT/HCPCS: 73030 ==